=== PATIENT | female | born 2000 | race Caucasian/White ===

== ENCOUNTER → 2024-07-08 | Outpatient (CLI) | payer OTHER | LOC: M RAD 06:49 | PROVIDERS: ATTEND Nurse Practitioner Adult Health | DX: J32.9 Chronic sinusitis, unspecified (principal) ==

== ENCOUNTER 2024-10-29 09:02 | Day surgery (SDC) | payer OTHER ==
[~2024-10-29] VITALS: Ht 160 cm; Wt 73.5 kg
[~2024-10-29 09:02] MED LIST: LR 1,000 ML IV SCH; PROA1AER2 IN
[2024-10-29] MEDS ORDERED: LIDOCAINE 2% 100MG/5ML SDV (FOR ANES.) As Ordered ONE (09:25)
[2024-10-29] MEDS ORDERED: ONDANSETRON 4MG 2ML VIAL As Ordered ONE (09:25)
[2024-10-29] MEDS ORDERED: propofoL 200 MG/20 ML VIAL As Ordered ONE (09:25)
[2024-10-29] MEDS ORDERED: SUGAMMADEX SODIUM 500 MG/5 ML VIAL As Ordered ONE (09:26)
[2024-10-29] MEDS ORDERED: ROCURONIUM BROMIDE 50MG/5ML VIAL As Ordered ONE (09:26)
[2024-10-29] MEDS ORDERED: REMIFENTANIL 1MG 3ML VIAL As Ordered ONE (09:30)
[2024-10-29] MEDS ORDERED: fentaNYL 100 MCG/2 ML INJECTION As Ordered ONE (09:32)
[2024-10-29] MEDS ORDERED: MIDAZOLAM INJ 2MG/2ML VIAL As Ordered ONE (09:32)
[2024-10-29] MEDS ORDERED: HYDROmorphone HCL 2MG/ML 1ML VIAL As Ordered ONE (10:46)
[2024-10-29] MEDS: LIDOCAINE W/EPINEPHRINE 1% 20ML VIAL As Ordered ONE (10:46)
[2024-10-29] MEDS: OXYMETAZOLINE 0.05% NASAL SPRAY As Ordered ONE (10:46)
[2024-10-29] MEDS: METHYLENE BLUE 0.5% (5MG/ML) 10 ML AMP As Ordered ONE (10:46)
[2024-10-29] MEDS ORDERED: fentaNYL 100 MCG/2 ML INJECTION IV PRN (12:25)
[2024-10-29] MEDS: oxyCODONE 5MG TAB PO PRN (13:26)
[2024-10-29] MEDS: ONDANSETRON 4MG 2ML VIAL IV PRN (13:44)
[2024-10-29 14:16] VITALS: BP 132/76; TEMP 97.3; O2SAT 99
== END 2024-10-29 14:22 | disposition home or self-care (01) ==
LOC: M SDC 09:02
PROVIDERS: ATTEND Otolaryngology
DX: J34.2 Deviated nasal septum (principal); J32.9 Chronic sinusitis, unspecified; J35.2 Hypertrophy of adenoids; J34.89 Other specified disorders of nose and nasal sinuses; I97.52 Accidental puncture and laceration of a circulatory system organ or structure during other procedure; J30.2 Other seasonal allergic rhinitis
CPT/HCPCS: 30140; 30520; 31255; 31267; 42831; 61782; 81025; 88305; C2625; J1100; J1171; J2250; J2405; J3010; Q9968